=== PATIENT | female | born 1980 | race Caucasian/White ===

== ENCOUNTER 2024-08-01 15:02 | Emergency (ER) | payer MEDICARE, BC, SELFPAY ==
--- NOTE | 2024-08-01 15:04 | ECG_ITS ---
[facility] 2024[facility]01 Pat Name: Salma Aguillon Department: Room: Gender: Female [employer]: : 1980 Requested By: Jef Gonzalez Order Number: [id number] Gloria MD: Sue Cardenas M.D. Measurements Intervals [place] Rate: 59 P: 17 FL: 143 QRS: 53 QRSD: 90 T: 17 QT: 418 QTc: 416 Interpretive Statements SINUS BRADYCARDIA POSSIBLE RIGHT VENTRICULAR CONDUCTION DELAY [RSR (QR) IN V1/V2] MODERATE T-WAVE ABNORMALITY, CONSIDER ANTERIOR ISCHEMIA [-0.1+ mV T-WAVE IN V3/V4] No previous ECG available for comparison Electronically Signed On 08-03-2024 06:10:12 CDT by Sue Cardenas M.D. [email or web address]
[2024-08-01 15:19] VITALS: BP 146/78; PULSE 69; RESP 16; TEMP 36.8; O2SAT 99
[2024-08-01 16:06] LABS: Basophils # 0.1 10^3/uL (0.0-0.1); Basophils % 0.6 %; Eosinophils # 0.3 10^3/uL (0.0-0.8); Eosinophils % 3.5 %; Hematocrit 38.6 % (36-47); Lymphocytes # 1.7 10^3/uL (0.8-4.8); Lymphocytes % 20.5 %; Mean Corpuscular HGB Conc 32.9 g/dL (30-55); Mean Corpuscular Hemoglobin 31.4 pg (27-33); Mean Corpuscular Volume 95.5 fl (85-98); Mean Platelet Volume 9.1 fL (7.4-10.4); Monocytes # 0.6 10^3/uL (0.2-0.9); Monocytes % 6.8 %; Neutrophils # 5.65 10^3/uL (1.8-7.7); Neutrophils % 68.4 %; Nucleated Red Blood Cells % 0 %; Platelet Count 198 10^3/cmm (157-399); Red Blood Count 4.04 10^6/uL (3.85-5.65); Red Cell Distribution Width 12.7 % (12.1-15.1); White Blood Count 8.26 10^3/uL (3.29-11.43)
[2024-08-01 16:25] LABS: Alanine Aminotransferase 18 U/L (0-33); Albumin Level 4.2 g/dL (3.5-5.2); Alkaline Phosphatase 66 U/L (35-105); Anion Gap 15.6 (5-19); Aspartate Amino Transferase 16 U/L (0-32); Blood Urea Nitrogen 12 mg/dL (6-20); Calcium 9.5 mg/dL (8.5-10.5); Carbon Dioxide 25 mmol/L (22-29); Chloride 102 mmol/L (98-107); Creatinine Clr Calc Pharmacy 134.5294; Glomerular Filtration Rate 109.1 mL/min (90-130); Glucose 88 mg/dL (65-115); Lipase 32 U/L (13-60); Osmolality Calculated 287 mOsm/kg (285-295); Potassium 3.6 mmol/L (3.5-5.1); Sodium 139 mmol/L (136-145); Total Bilirubin 0.3 mg/dL (0.15-1.2); Total Protein 7.2 g/dL (6.6-8.7)
[2024-08-01 16:35] LABS: HCG, Serum Qual Negative (Negative)
--- NOTE | 2024-08-01 18:04 | W.ED.GENADLT ---
HPI - General Adult General: Chief complaint: Abdominal Pain Stated complaint: tightness upper adbomen-pt has MS Time Seen by Provider: 08/01/24 17:07 Source: patient Mode of arrival: ambulatory Limitations: no limitations History of Present Illness: 44yo female presents with family for concern of an MS flare. Patient states she has been off her Ocrevus for the past 10 months. She did recently see Dr. Felipe last month to establish care and get her medications. Patient states that there has been an issue with getting her medication , but she thinks it will be resolved soon. Reports she does have lesions on her brain as well as on her spine. She states her initial flare was in 2022 and it affected her legs. Reports that it is the same type of symptoms that are now affecting her arm. Patient states her pain originated in the right upper quadrant and radiating all the way around to the left abdomen and to the back at the right flank area. Patient states that she does have liver and kidney disease, but has never had pain in her liver. Patient states that she does take Lyrica 150 mg 3 times a day, otherwise she is not able to walk. H/o cholecystectomy, hysterectomy Associated symptoms: Deny chest pain, dyspnea or vomiting Related Data Home Medications ?Medication ?Instructions ?Recorded ?Confirmed cariprazine 3 mg capsule (Vraylar) mg PO 07/05/24 07/05/24 citalopram 20 mg tablet mg PO 07/05/24 07/05/24 fluorometholone 0.1 % eye 1 drp ophthalmic (eye) 07/05/24 07/05/24 drops,suspension omeprazole 40 mg capsule,delayed 40 mg PO 07/05/24 07/05/24 release sucralfate 1 gram tablet PO 07/05/24 07/05/24 trazodone 50 mg tablet 50 mg PO 07/05/24 07/05/24 Previous Rx's ?Medication ?Instructions ?Recorded pregabalin 150 mg capsule (Lyrica) 150 mg PO TID #90 caps 07/05/24 hydrocodone 7.5 mg-acetaminophen 1 tab PO Q6H PRN pain #12 tabs 08/01/24 325 mg tablet prednisone 20 mg tablet 60 mg (3 x 20 mg) PO DAILY #15 tabs 08/01/24 Allergies Allergy/AdvReac Type Severity Reaction Status Date / Time nickel Allergy Mild ADR-Rash Verified 07/05/24 09:31 NSAIDS (Non-Steroidal Allergy Mild ALGY-Rash Verified 07/05/24 09:31 Anti-Inflamma Sulfa (Sulfonamide Allergy Unknown Verified 08/01/24 15:21 Antibiotics) surgical glue Allergy Mild ADR-rash Uncoded 07/05/24 09:31 Review of Systems Const: Reports: body aches and fatigue; Denies: fever(s) or chills Eyes: Denies: change in vision Card: Denies: chest pain Resp: Denies: dyspnea GI: Reports: abdominal pain; Denies: vomiting Neuro: Reports: weakness in extremities (right) and sensory changes (antony UE); Denies: Slurred speech present [facility] ED PFSH: Social History Smoking and tobacco/nicotine status: former use of tobacco/nicotine (QUIT ABOUT 22 YEARS AGO) Physical Exam Const: COMMON NORMALS: no acute distress, patient oriented x3, healthy appearing and alert GENERAL APPEARANCE: cooperative ORIENTATION/CONSCIOUSNESS: Yes awake OTHER: Patient is sitting upright in a vertical flow recliner in no acute distress. She is able to give history with no difficulty. She is interactive with exam appropriately. Family is at bedside HENMT: COMMON NORMALS: normocephalic and atraumatic HEAD & SCALP: normocephalic and atraumatic Neuro: COMMON NORMALS: patient oriented x3 SENSORIUM/ORIENTATION: Yes alert Course ED course: Discussed with patient that I would not be able to provide Ocrevus while in the emergency department today. Discussed that we can try to help her pain and begin steroids until she is able to get her medication. Patient reports that nothing actually helps her pain, it is always present. She states she has been given morphine in the past as well as steroids. Patient is concerned that she may have new lesions. Discussed with patient that MRI is not available at this time. Will proceed with pain medication, steroids, and await urine collection to rule out UTI as other labs are unremarkable. No indication of UTI noted on UA Vital Signs: Vital signs: Vital Signs Temperature 98.2 F 08/01/24 15:19 Pulse Rate 69 08/01/24 15:19 Respiratory Rate 16 08/01/24 15:19 Blood Pressure 146/78 08/01/24 15:19 Pulse Oximetry 99 08/01/24 15:19 Oxygen Delivery Me thod Room Air 08/01/24 15:19 MDM - General Adult Medical Decision Making 44yo female presents with family for concern of an MS flare. Patient states she has been off her Ocrevus for the past 10 months. She did recently see Dr. Felipe last month to establish care and get her medications. Patient states that there has been an issue with getting her medication , but she thinks it will be resolved soon. Patient is nontoxic in appearance. Vital signs are stable. No leukocytosis, anemia, electrolyte/renal/hepatic abnormality noted. UA with 2+ ketones, 3+ blood, and 11-20 red blood cells, otherwise unremarkable. Discussed all findings with patient. Discussed that we would not be able to get her MS medication while in the emergency department. Proceeded with morphine and prednisone in attempt to help with her discomfort. Patient did also receive a [place] just prior to discharge. Short course hydrocodone and prednisone sent to patient's pharmacy. Strongly encourage patient to contact neurology tomorrow to discuss her symptoms and to discuss treatment. Return precautions provided. Patient and family state understanding and have no further questions or concerns at this time. Medical Records I reviewed the patient's medical records. Lab Data I reviewed the patient's lab results. 08/01/24 15:40 08/01/24 15:40 Laboratory Results WBC 8.26 10^3/uL (3.29-11.43) 08/01/24 15:40 RBC 4.04 10^6/uL (3.85-5.65) 08/01/24 15:40 Hgb 12.70 g/dL (11.27-16.99) 08/01/24 15:40 Hct 38.6 % (36-47) 08/01/24 15:40 MCV 95.5 fl (85-98) 08/01/24 15:40 MCH 31.4 pg (27-33) 08/01/24 15:40 MCHC 32.9 g/dL (30-55) 08/01/24 15:40 RDW 12.7 % (12.1-15.1) 08/01/24 15:40 Plt Count 198 10^3/cmm (157-399) 08/01/24 15:40 MPV 9.1 fL (7.4-10.4) 08/01/24 15:40 Neut % (Auto) 68.4 % 08/01/24 15:40 Lymph % (Auto) 20.5 % 08/01/24 15:40 Steele % (Auto) 6.8 % 08/01/24 15:40 Eos % (Auto) 3.5 % 08/01/24 15:40 Baso % (Auto) 0.6 % 08/01/24 15:40 Neut # (Auto) 5.65 10^3/uL (1.8-7.7) 08/01/24 15:40 Lymph # (Auto) 1.7 10^3/uL (0.8-4.8) 08/01/24 15:40 Steele # (Auto) 0.6 10^3/uL (0.2-0.9) 08/01/24 15:40 Eos # (Auto) 0.3 10^3/uL (0.0-0.8) 08/01/24 15:40 Baso # (Auto) 0.1 10^3/uL (0.0-0.1) 08/01/24 15:40 Nucleated RBC % (auto) 0 % 08/01/24 15:40 Nucleated RBCs # 0.0 /100WBC 08/01/24 15:40 Sodium 139 mmol/L (136-145) 08/01/24 15:40 Potassium 3.6 mmol/L (3.5-5.1) 08/01/24 15:40 Chloride 102 mmol/L (98-107) 08/01/24 15:40 Carbon Dioxide 25 mmol/L (22-29) 08/01/24 15:40 Anion Gap 15.6 (5-19) 08/01/24 15:40 BUN 12 mg/dL (6-20) 08/01/24 15:40 Creatinine 0.6 mg/dL (0.5-0.9) 08/01/24 15:40 GFR Calculation 109.1 mL/min (90-130) 08/01/24 15:40 Glucose 88 mg/dL (65-115) 08/01/24 15:40 Calculated Osmolality 287 mOsm/kg (285-295) 08/01/24 15:40 Calcium 9.5 mg/dL (8.5-10.5) 08/01/24 15:40 Total Bilirubin 0.3 mg/dL (0.15-1.2) 08/01/24 15:40 AST 16 U/L (0-32) 08/01/24 15:40 ALT 18 U/L (0-33) 08/01/24 15:40 Alkaline Phosphatase 66 U/L (35-105) 08/01/24 15:40 Total Protein 7.2 g/dL (6.6-8.7) 08/01/24 15:40 Albumin 4.2 g/dL (3.5-5.2) 08/01/24 15:40 Globulin 3.0 g/dL (1.3-4.6) 08/01/24 15:40 Lipase 32 U/L (13-60) 08/01/24 15:40 HCG, Qual Negative (Negative) 08/01/24 15:40 Urine Color Yellow (Yellow) 08/01/24 18:30 Urine Appearance Clear (CLEAR) 08/01/24 18:30 Urine pH 5.0 (5-7) 08/01/24 18:30 Ur Specific [place] 1.021 (1.005-1.030) 08/01/24 18:30 Urine Protein Negative (Negative) 08/01/24 18:30 Urine Glucose (UA) Negative (Normal) 08/01/24 18:30 Urine Ketones 2+ (Negative) H 08/01/24 18:30 Urine Blood 3+ (Negative) A 08/01/24 18:30 Urine Nitrate Negative (Negative) 08/01/24 18:30 Urine Bilirubin Negative (Negative) 08/01/24 18:30 Urine Urobilinogen 0.2 mg/dL (Negative) 08/01/24 18:30 Ur Leukocyte Esterase Negative (Negative) 08/01/24 18:30 Urine RBC 11-20 /hpf (0-2) H 08/01/24 18:30 Urine WBC 0-5 /hpf (0-5) 08/01/24 18:30 Ur Squamous Epith Cells 0-5 /hpf (0-5) 08/01/24 18:30 Amorphous Sediment Not Reportable 08/01/24 18:30 Urine Bacteria None seen /hpf (NONE) 08/01/24 18:30 Hyaline Casts 0-4 /lpf H 08/01/24 18:30 No radiology studies performed this visit Discharge Plan Discharge Patient Disposition: Home Clinical Impression: Arm pain, right, Pain, abdominal, RUQ, Multiple sclerosis Condition: Stable Prescriptions: New hydrocodone-acetaminophen 7.5-325 mg tablet 1 tab PO Q6H PRN (Reason: pain) Qty: 12 0RF prednisone 20 mg tablet 60 mg PO DAILY Qty: 15 0RF No Action trazodone 50 mg tablet 50 mg PO sucralfate 1 gram tablet PO omeprazole 40 mg capsule,delayed release(DR/EC) 40 mg PO citalopram 20 mg tablet PO fluorometholone 0.1 % drops,suspension 1 drp ophthalmic (eye) Vraylar 3 mg capsule PO pregabalin [Lyrica] 150 mg capsule 150 mg PO TID Qty: 90 5RF Discharge Orders: Discharge ED (Routine); Ordered 08/01/24 Ordered By: Juan Li Patient Instructions: Opioid Safety, Pain Management Activity Restrictions/Additional Instructions: A short course of pain medication and steroids have been sent to your pharmacy. Please do not drive or operate heavy machinery while taking pain medication Please contact Dr. Felipe tomorrow to discuss your symptoms and treatments No indication of infection noted on your labs today Return to the emergency department if any rapid worsening symptoms, onset of fever associated with worsening, and as needed Print Language: Yakut Coding Level of Care Code ED Medicaid Eligibility Specialist for Noemi Montiel
[2024-08-01] MEDS: morphine 4 mg/mL SDV 1 mL 8 MG IM (18:31)
[2024-08-01] MEDS: predniSONE 20 mg Tablet 60 MG PO (18:31)
[2024-08-01] MEDS: ondansetron hcl ODT 4 mg Tab PO (18:31)
[2024-08-01 18:45] LABS: Bilirubin Urine Negative (Negative); Blood Urine 3+ (Negative); Glucose Urine UA Negative (Normal); Ketones Urine 2+ (Negative); Leukocyte Esterase Urine Negative (Negative); Nitrate Urine Negative (Negative); Protein Urine Negative (Negative); Specific Gravity, Urine 1.021 (1.005-1.030); Urine Appearance Clear (CLEAR); Urine Color Yellow (Yellow); Urobilinogen Urine 0.2 mg/dL (Negative)
[2024-08-01 18:48] LABS: Add Urine Microscopic? YES; Bacteria Urine None Seen /hpf; Hyaline Casts Urine 0-4 /lpf; Squamous Epithelial Cell Urine 0-5 /hpf (0-5); WBC Urine 0-5 /hpf (0-5)
[2024-08-01 18:54] LABS: Add Urine Culture? Yes
[2024-08-01] MEDS: HYDROcodone-acetaminophen 5-325 mg Tablet 1 TAB PO (19:44)
== END 2024-08-01 19:46 | disposition home or self-care (01) ==
PROVIDERS: Emergency Medicine; Emergency Provider Nurse Practitioner
DX: M79.601 Pain in right arm (principal); R10.11 Right upper quadrant pain; G35 Multiple sclerosis; Z87.891 Personal history of nicotine dependence
CPT/HCPCS: 36415; 80053; 81001; 83690; 84703; 85025; 87086; 93005; 96372; 99284; J2270; J7512; J9999; Q0162

== ENCOUNTER 2024-08-11 08:00 | Oncology outpatient (recurring) (ONCR) | payer BC, MEDICARE, SELFPAY ==
[2024-08-07] MEDS: methylPREDNISolone sod succ 1,000 MG in sodium chloride 0.9% 250 ML 500 MG IV (11:42)
[2024-08-07 12:55] VITALS: BP 114/75; PULSE 67; RESP 18; TEMP 36.2
[2024-08-08] MEDS: methylPREDNISolone sod succ 1,000 MG in sodium chloride 0.9% 250 ML 500 MG IV (09:46)
[2024-08-08 11:04] VITALS: BP 119/76; PULSE 62; TEMP 36.8; O2SAT 99
[2024-08-09] MEDS: methylPREDNISolone sod succ 1,000 MG in sodium chloride 0.9% 250 ML 500 MG IV (10:11)
[2024-08-09 17:29] VITALS: BP 121/78; PULSE 84; RESP 16
[2024-08-10 09:14] VITALS: BP 130/77; PULSE 59; O2SAT 100
[2024-08-10] MEDS: methylPREDNISolone sod succ 1,000 MG in sodium chloride 0.9% 250 ML 500 MG IV (09:37)
[2024-08-11] MEDS: methylPREDNISolone sod succ 1,000 MG in sodium chloride 0.9% 250 ML 500 MG IV (08:48)
[2024-08-11 10:14] VITALS: BP 117/76; PULSE 53; RESP 17; TEMP 36.1; O2SAT 97
== END 2024-08-14 23:59 | disposition home or self-care (01) ==
PROVIDERS: Visit Provider Specialist
DX: G35 Multiple sclerosis (principal); Z79.899 Other long term (current) drug therapy; Z53.9 Procedure and treatment not carried out, unspecified reason
CPT/HCPCS: 96365; J2919; J7050

== ENCOUNTER 2024-08-17 07:22 | Oncology outpatient (recurring) (ONCR) | payer BC, MEDICARE, SELFPAY ==
[2024-08-17] VITALS (7 sets, daily range): BP systolic 94–119; BP diastolic 56–74; PULSE 64–80; RESP 16–17; TEMP 36.4–36.5; O2SAT 97–99
--- NOTE | 2024-08-17 07:57 | PC.NURSE ---
Verified with Denice at Dr. Nevarez office via WebEx that pt is to receive the full 600mg dose of Ocrevus vs two doses of 300mg
[2024-08-17] MEDS: diphenhydrAMINE 50 mg/mL SDV 1mL 25 MG IVP (08:17)
[2024-08-17] MEDS: methylPREDNISolone sod succ 125 mg/2 mL INJ IVP (08:23)
== END 2024-09-14 23:59 | disposition home or self-care (01) ==
PROVIDERS: Visit Provider Specialist
DX: G35 Multiple sclerosis (principal); Z79.899 Other long term (current) drug therapy
CPT/HCPCS: 96375; 96413; 96415; A4222; J1200; J2350; J2919; J7040; J7050; J9999

== ENCOUNTER 2025-01-15 11:15 | Outpatient (CLI) | payer BC, MEDICARE, SELFPAY ==
--- NOTE | 2025-01-15 12:15 | MR_ITS ---
WS: [id number] MRI BRAIN WITH AND WITHOUT CONTRAST HISTORY: G35 - Multiple sclerosis COMPARISON: None available. TECHNIQUE: Multiplanar imaging performed through the brain with MultiHance 20 ml's IV. No acute infarcts. Diffusion imaging is normal. There are several ovoid hyperintensities perpendicular to the callososeptal junction. These T2 hyperintensities are bilateral with a slightly greater distribution on the LEFT. There is an additional ovoid hyperintensity adjacent to the LEFT temporal horn. There are a few additional subcortical lesions within the brain, greatest involving the frontal lobes. No black holes or necrotic changes. No susceptibility artifacts or prior lacunar infarcts. Ventricles and extra-axial spaces are normal. Clivus and pituitary gland are normal. Visualized posterior fossa and brainstem are also normal. Postcontrast images are negative for masses or vascular malformations. None of the demyelinating lesions enhance. Dural venous sinuses are normal. Paranasal sinuses: Well aerated with no significant disease. Mastoid air cells: Normal. Calvarium and scalp: Normal. MR/MR head wo/w con [id number] IMPRESSION: 1. Mild to moderate close a septal hyperintensities consistent with multiple s clerosis diagnosis. Slightly greater distribution along the LEFT corpus callosu m. 2. No areas of enhancement or active demyelination. 3. No enhancing masses or vascular malformations.
--- NOTE | 2025-01-15 13:00 | MR_ITS ---
WS: [id number] MRI CERVICAL SPINE with and without contrast HISTORY: G35 - Multiple sclerosis COMPARISON: None available. Technique: Multiplanar, multisequence noncontrast imaging of the cervical spine. Sagittal and axial T1 fat sat sequences post-MultiHance 20 cc IV. Slight retrolisthesis of C4 and C5 by 1 to 2 mm. Disc spaces are slightly narrowed. Multiple T2 hyperintensities are noted in the cervical and upper thoracic cord. The largest signal abnormality centered at C5-6 extends over a length of 12 mm. There is additional RIGHT lateral signal abnormality in the cervical cord at C4 and C5. Smaller patchy areas of increased signal at C7. There are lesions noted in the upper thoracic cord which were not appreciated on the thoracic spine MRI. Short segment cord lesion at T2 measures 6 mm. There is an additional longer lesion measuring 14 mm centered at T4-5. Craniocervical junction, C1 and C2 relationship, odontoid process and soft tissues are normal. C2-C3: Normal. C3-C4: Small central disc protrusion and facet arthritis. C4-C5: Mild osteophytic ridging. Mild bilateral foraminal stenosis and a small central disc protrusion with annular fissure. C5-C6: Mild osteophytic ridging with disc bulging and facet arthritis. C6-C7: Mild facet arthritis and foraminal stenosis due to disc disease. C7-T1: Normal. On the postcontrast sequences there is very slight increased signal at several locations in the cervical cord. Some of these correspond to the areas of demyelination and others do not correspond to areas of demyelination therefore I suspect this is most likely an artifact and not active demyelination. Paravertebral soft tissues are normal. MR/MR cervical spine wo/w [id number] IMPRESSION: 1. Multiple levels of demyelination noted in the cervical and upper thoracic c ord. Some of the lesions in the upper thoracic cord were not definitely seen on the thoracic MRI. 2. Longest lesion in the cervical spine centered at C5-6 measures 12 mm. 3. Longest lesion in the upper thoracic spine centered at T4-5 measures 14 mm. 4. No definite enhancement. There is signal abnormality within the cord on the postcontrast images but the signal abnormality does not all correspond to the areas of demyelination suggesting this may be artifact.
--- NOTE | 2025-01-15 13:45 | MR_ITS ---
WS: [id number] MRI THORACIC SPINE with and without contrast HISTORY: G35 - Multiple sclerosis, back pain and spasms. COMPARISON: None available. TECHNIQUE: Multiplanar sequences are performed in sagittal and axial planes. Sagittal and axial T1 fat sat sequences post-MultiHance 20 cc IV. Normal posterior thoracic alignment. There is minimal disc space narrowing. There is slight increased T2 signal in the thoracic cord at T11 which may be an artifact. No signal abnormalities within the cord or cord compression. Conus tapers normally and ends near L1. No cord atrophy or enlargement. No d emyelinating lesions are identified. Mild facet joint arthropathy beginning at T4-5 throughout the remaining thoracic spine. Shallow LEFT paracentral disc protrusion at T6-7. Mild foraminal stenosis at T7-8, T8-9, T10-11. MR/MR thoracic spine wo/w [id number] IMPRESSION: 1. No definite signal abnormalities or demyelination noted in the thoracic cor d. There is an increased T2 signal in the thoracic cord centered at T11 which i s probably an artifact. 2. No cord atrophy or enlargement. 3. No enhancing lesions in the thoracic spine.
== END 2025-01-15 11:16 | disposition home or self-care (01) ==
LOC: RAD 11:16
PROVIDERS: PCP Nurse Practitioner Family; Visit Provider Specialist
DX: G35.A Relapsing-remitting multiple sclerosis (principal); R93.0 Abnormal findings on diagnostic imaging of skull and head, not elsewhere classified; R93.7 Abnormal findings on diagnostic imaging of other parts of musculoskeletal system; M89.8X8 Other specified disorders of bone, other site; M50.21 Other cervical disc displacement, high cervical region; M47.892 Other spondylosis, cervical region; M48.02 Spinal stenosis, cervical region; M50.221 Other cervical disc displacement at C4-C5 level; M50.322 Other cervical disc degeneration at C5-C6 level; M47.894 Other spondylosis, thoracic region; M48.04 Spinal stenosis, thoracic region
CPT/HCPCS: 70553; 72156; 72157

== ENCOUNTER 2025-02-13 07:24 | Oncology outpatient (recurring) (ONCR) | payer BC, MEDICARE, SELFPAY ==
[2025-02-13 07:51] VITALS: BP 131/68; PULSE 78; RESP 18; TEMP 36.1; O2SAT 99
[2025-02-13] MEDS: methylPREDNISolone sod succ 125 mg/2 mL INJ IVP (08:29)
[2025-02-13] MEDS: diphenhydrAMINE 50 mg/mL SDV 1mL 25 MG IVP (08:29)
[2025-02-13 09:10] VITALS: BP 131/68; PULSE 64; RESP 17; TEMP 36.6; O2SAT 96
[2025-02-13 09:30] VITALS: BP 96/63; PULSE 64; RESP 18; TEMP 36.5; O2SAT 96
[2025-02-13 09:45] VITALS: BP 103/65; PULSE 67; RESP 17; TEMP 36.6; O2SAT 99
[2025-02-13 10:50] VITALS: BP 98/62; PULSE 68; RESP 18; TEMP 36.6; O2SAT 96
[2025-02-13 11:50] VITALS: BP 98/62; PULSE 68; RESP 18; TEMP 36.2; O2SAT 96
== END 2025-02-14 23:59 | disposition home or self-care (01) ==
PROVIDERS: PCP Nurse Practitioner Family; Visit Provider Specialist
DX: Z53.9 Procedure and treatment not carried out, unspecified reason; G35.D Multiple sclerosis, unspecified; Z79.899 Other long term (current) drug therapy
CPT/HCPCS: 96375; 96413; 96415; A4222; J1200; J2350; J2919; J7040; J7050; J9999